=== PATIENT | female | born 1965 | race Caucasian/White ===

== ENCOUNTER 2022-10-07 16:26 | Inpatient (IN) | payer MEDICAID ==
[~2022-10-07] VITALS: Ht 172.7 cm; Wt 56.0 kg
[2022-10-07 17:00] LABS: BASOPHILS # (AUTO) 0.1 X10'3 (0-0.2); BASOPHILS % (AUTO) 0.4 % (0-1); EOSINOPHILS % (AUTO) 0.1 % (0-6); HEMATOCRIT 51.1 % (35.0-45.0); LYMPHOCYTES # (AUTO) 1.4 X10'3 (1.1-4.8); LYMPHOCYTES % (AUTO) 11.4 % (21-51); MEAN CORPUSCULAR HEMOGLOBIN 31.4 PG (27.0-31.0); MEAN CORPUSCULAR HGB CONC 35.3 g/dL (33.0-36.5); MEAN PLATELET VOLUME 8.2 FL (7.4-10.4); MONOCYTES % (AUTO) 7.8 % (2-12); NEUTROPHILS # (AUTO) 10.1 X10'3 (1.8-7.7); NEUTROPHILS % (AUTO) 80.3 % (42-75); PLATELET COUNT 396 X10'3 (140-440); RED BLOOD COUNT 5.74 X10'6 (4.20-5.60); RED CELL DISTRIBUTION WIDTH 12.4 % (11.5-14.5); WHITE BLOOD COUNT 12.5 X10'3 (4.5-11.0)
[2022-10-07] MEDS ORDERED: normal saline 1000ML IV soln IVB ONE (17:05)
[2022-10-07 17:11] LABS: ALANINE AMINOTRANSFERASE 22 U/L (12-78); ALBUMIN 4.4 G/DL (3.4-5.0); ALBUMIN/GLOBULIN RATIO 1.1 (1.1-1.5); ALKALINE PHOSPHATASE 64 IU/L (46-116); ANION GAP 21 (8-16); ASPARTATE AMINO TRANSFERASE 32 U/L (10-37); BILIRUBIN,TOTAL 1.1 MG/DL (0.1-1.0); BLOOD UREA NITROGEN 39 MG/DL (7-18); BUN/CREATININE RATIO 27.7 (10.0-20.0); CALCIUM 10.7 MG/DL (8.5-10.1); CHLORIDE 88 MMOL/L (99-107); CREATININE 1.41 MG/DL (0.40-0.90); GLUCOSE 156 MG/DL (70-104); LIPASE 123 U/L (73-393); POTASSIUM 3.1 MMOL/L (3.5-5.1); SODIUM 134 MMOL/L (135-145); TOTAL CARBON DIOXIDE 24.7 MMOL/L (24-32); TOTAL PROTEIN 8.3 G/DL (6.4-8.2); eGFR 38 ML/MIN
[2022-10-07] MEDS ORDERED: potassium Cl 40MEQ/1/2NS 520ml 520 ML IV ONE (17:20)
[2022-10-07] MEDS ORDERED: ondansetron/PF 4mg/2ml inj IV ONE (17:20)
[2022-10-07] MEDS ORDERED: normal saline 1000ml 1,000 ML IV ONE (17:25)
--- NOTE | 2022-10-07 17:25 | NUR ---
Critical lab reported: Hgb 18.0. Reported to SANDY Ochoa @ [phone].
[2022-10-07] MEDS ORDERED: magnesium 2GM in 50ml NS 50 ML IV ONE (17:30)
[2022-10-07 17:37] LABS: CLARITY,URINE CLOUDY (Clear); COLOR,URINE YELLOW (Yellow); GLUCOSE, URINE NEGATIVE (Neg); KETONES,URINE >=80 mg/dl (Neg); LEUKOCYTE ESTERASE ,URINE TRACE (Neg); NITRITES, URINE NEGATIVE (Neg); OCCULT BLOOD,URINE NEGATIVE (Neg); PH,URINE 6.5 (4.8-8.0); PROTEIN,URINE 30 mg/dl (Neg)
[2022-10-07 17:42] LABS: UA COLLECTION TYPE CLN CATCH MIDSTREAM
[2022-10-07 17:45] LABS: WBC,URINE 20-30 /HPF (0-4)
[2022-10-07] MEDS ORDERED: morphine 2 MG/ML inj. syringe IV PRN (17:45)
[2022-10-07] MEDS ORDERED: magnesium Cl slow-release 64mg tablet PO PRN (17:45)
[2022-10-07] MEDS ORDERED: HYDROcodone/acetaminophen 5mg/325mg tablet PO PRN (17:45)
[2022-10-07] MEDS ORDERED: potassium Cl 20 mEq SR tablet PO PRN (17:45)
[2022-10-07] MEDS ORDERED: potassium Cl 40MEQ/1/2NS 520ml 520 ML IV PRN (17:45)
[2022-10-07] MEDS ORDERED: acetaminophen 325mg tablet PO PRN ×2 (17:45)
[2022-10-07] MEDS ORDERED: metoclopramide 5 mg/ml inj IV PRN (17:45)
[2022-10-07] MEDS ORDERED: magnesium 2GM in 50ml NS 50 ML IV PRN (17:45)
[2022-10-07] MEDS ORDERED: magnesium 4gm in 100ml NS 100 ML IV PRN (17:45)
[2022-10-07 17:46] LABS: BACTERIA,URINE 2+ /HPF (Neg); RBC,URINE NONE SEEN /HPF (0-2); SQUAMOUS EPITHELIAL CELL,UR FEW /LPF (FEW)
[2022-10-07 17:47] LABS: MUCUS STRANDS MODERATE /LPF (Neg); WBC CLUMPS,URINE FEW /HPF (NEGATIVE)
[2022-10-07] MEDS ORDERED: ONDA-103 PO (18:28)
[2022-10-07] MEDS ORDERED: ZOLP10TA PO (18:28)
[2022-10-07] MEDS ORDERED: ZIPR80CA10 PO (18:28)
[2022-10-07] MEDS ORDERED: LEVO75TA7 PO (18:28)
[2022-10-07] MEDS ORDERED: ESCI5TAB17 PO (18:28)
[2022-10-07] MEDS ORDERED: SIMV-45 PO (18:28)
[2022-10-07] MEDS ORDERED: HYDR-3686 PO (18:28)
[2022-10-07] MEDS ORDERED: OMEP20CA16 PO (18:28)
[2022-10-07] MEDS ORDERED: MIRT45TA83 PO (18:28)
[2022-10-07] MEDS ORDERED: VORT20TA PO (18:28)
[2022-10-07] MEDS ORDERED: IBUP-1985 PO (18:28)
[2022-10-07] MEDS ORDERED: pantoprazole 40mg IV 80 MG in normal saline 100ml IV soln 100 ML IV ONE (18:30)
[2022-10-07] MEDS ORDERED: FLU VACC QS2022-23(6MOS UP)/PF 60 MCG/0.5 ML SYRINGE IMVAC ONE (18:50)
[2022-10-07] MEDS ORDERED: pneumococcal 23-VAL P-sac vacc 25 mcg/0.5ml vial IMVAC ONE (18:50)
[2022-10-07] MEDS: normal saline 1000ml 1,000 ML IV SCH (19:05)
[2022-10-07] MEDS: heparin, porcine 5000 units/ml vial SQ SCH (20:00)
[2022-10-07 20:44] LABS: BASOPHILS % (AUTO) 0.4 % (0-1); EOSINOPHILS % (AUTO) 0 % (0-6); HEMATOCRIT 42.6 % (35.0-45.0); HEMOGLOBIN 15.1 g/dl (12.0-16.0); LYMPHOCYTES % (AUTO) 15.5 % (21-51); MEAN CORPUSCULAR HEMOGLOBIN 31.5 PG (27.0-31.0); MEAN CORPUSCULAR HGB CONC 35.5 g/dL (33.0-36.5); MEAN CORPUSCULAR VOLUME 88.8 FL (78-98); MONOCYTES # (AUTO) 1.3 X10'3 (0-0.9); MONOCYTES % (AUTO) 10.2 % (2-12); NEUTROPHILS # (AUTO) 9.5 X10'3 (1.8-7.7); NEUTROPHILS % (AUTO) 73.9 % (42-75); PLATELET COUNT 328 X10'3 (140-440); RED BLOOD COUNT 4.79 X10'6 (4.20-5.60); RED CELL DISTRIBUTION WIDTH 12.2 % (11.5-14.5); WHITE BLOOD COUNT 12.8 X10'3 (4.5-11.0)
--- NOTE | 2022-10-07 20:48 | NUR ---
Sent Dr. Greenfield a page @ [phone] to ask if we should hold her heparin due to her procedure tomorrow AM. Awaiting response.
[2022-10-07] MEDS: mirtazapine 15mg tablet PO SCH (22:32)
[2022-10-07] MEDS: zolpidem 5mg tablet PO PRN (22:32)
[2022-10-08] VITALS (12 sets, daily range): BP systolic 92–127; BP diastolic 38–93
[2022-10-08] MEDS: normal saline 1000ml 1,000 ML IV SCH ×4 (01:19→18:47)
[2022-10-08 03:34] LABS: BASOPHILS % (AUTO) 0.2 % (0-1); EOSINOPHILS % (AUTO) 0.1 % (0-6); HEMOGLOBIN 13.7 g/dl (12.0-16.0); LYMPHOCYTES # (AUTO) 1.7 X10'3 (1.1-4.8); LYMPHOCYTES % (AUTO) 15.7 % (21-51); MEAN CORPUSCULAR HEMOGLOBIN 31.4 PG (27.0-31.0); MEAN CORPUSCULAR HGB CONC 35.1 g/dL (33.0-36.5); MEAN CORPUSCULAR VOLUME 89.6 FL (78-98); MEAN PLATELET VOLUME 8.1 FL (7.4-10.4); MONOCYTES # (AUTO) 1.1 X10'3 (0-0.9); MONOCYTES % (AUTO) 9.9 % (2-12); NEUTROPHILS # (AUTO) 8.1 X10'3 (1.8-7.7); NEUTROPHILS % (AUTO) 74.1 % (42-75); PLATELET COUNT 277 X10'3 (140-440); RED BLOOD COUNT 4.36 X10'6 (4.20-5.60); RED CELL DISTRIBUTION WIDTH 12.5 % (11.5-14.5)
[2022-10-08 06:00] LABS: ALANINE AMINOTRANSFERASE 16 U/L (12-78); ALBUMIN 3.2 G/DL (3.4-5.0); ALBUMIN/GLOBULIN RATIO 1.1 (1.1-1.5); ALKALINE PHOSPHATASE 47 IU/L (46-116); ANION GAP 15 (8-16); ASPARTATE AMINO TRANSFERASE 22 U/L (10-37); BILIRUBIN,TOTAL 0.8 MG/DL (0.1-1.0); BLOOD UREA NITROGEN 34 MG/DL (7-18); BUN/CREATININE RATIO 37.8 (10.0-20.0); CALCIUM 8.3 MG/DL (8.5-10.1); CHLORIDE 101 MMOL/L (99-107); GLUCOSE 91 MG/DL (70-104); SODIUM 138 MMOL/L (135-145); TOTAL CARBON DIOXIDE 21.8 MMOL/L (24-32); TOTAL PROTEIN 6.1 G/DL (6.4-8.2); eGFR 65 ML/MIN
[2022-10-08 06:06] LABS: POTASSIUM 2.7 MMOL/L (3.5-5.1)
[2022-10-08] MEDS ORDERED: potassium Cl 40MEQ/1/2NS 520ml 520 ML IV ONE (06:35)
[2022-10-08] MEDS: levoTHYROXINE 75mcg tablet PO SCH (07:00)
[2022-10-08] MEDS ORDERED: MIDAZolam 1 MG/ML 5ML VIAL ONE (07:25)
[2022-10-08] MEDS ORDERED: fentaNYL/PF 50MCG/1 ML 2ML syringe ONE (07:25)
[2022-10-08] MEDS ORDERED: LIDOcaine Viscous 15ml cup ONE (07:25)
[2022-10-08] MEDS ORDERED: ondansetron/PF 4mg/2ml inj ONE (07:35)
[2022-10-08] MEDS: heparin, porcine 5000 units/ml vial SQ SCH ×2 (08:00→19:54)
[2022-10-08] MEDS: ESCITALOPRAM OXALATE 5 MG TABLET PO SCH (08:00)
[2022-10-08] MEDS ORDERED: ziprasidone 20mg capsule PO SCH ×2 (08:00→21:00)
[2022-10-08] MEDS ORDERED: FLU VACC QS2022-23(6MOS UP)/PF 60 MCG/0.5 ML SYRINGE IMVAC ONE (10:00)
[2022-10-08] MEDS: ondansetron/PF 4mg/2ml inj IV PRN ×2 (10:40→18:44)
--- NOTE | 2022-10-08 16:09 | NUR ---
Pending dc on patients potassium redraw. t/c to lab and was told this will be done when "rover" is able to get to the floor.
[2022-10-08 17:53] LABS: URINE AMPHETAMINE SCREEN NEGATIVE (Neg); URINE BARBITUATE SCREEN NEGATIVE (Neg); URINE BENZODIAZEPINES SCREEN POSITIVE (Neg); URINE CANNABINOID SCREEN POSITIVE (Neg); URINE COCAINE SCREEN NEGATIVE (Neg); URINE METHADONE SCREEN NEGATIVE (Neg); URINE OPIATE SCREEN NEGATIVE (Neg); URINE PHENCYCLIDINE SCREEN NEGATIVE (Neg)
[2022-10-08] MEDS: potassium Cl 20 mEq SR tablet PO PRN ×2 (18:43→23:16)
[2022-10-08] MEDS: zolpidem 5mg tablet PO PRN (20:32)
[2022-10-08] MEDS: mirtazapine 15mg tablet PO SCH (20:32)
[2022-10-09] MEDS: potassium Cl 20 mEq SR tablet PO PRN (02:58)
[2022-10-09] MEDS: ondansetron/PF 4mg/2ml inj IV PRN (04:22)
[2022-10-09] MEDS: normal saline 1000ml 1,000 ML IV SCH (04:23)
--- NOTE | 2022-10-09 06:25 | NUR ---
Problems reprioritized. Patient report given, questions answered & plan of care reviewed with JARED Parra.
--- NOTE | 2022-10-09 06:58 | NUR ---
Patient in room [facility]. I have received report from Maria Elena COLEMAN and had the opportunity to ask questions and assume patient care.
--- NOTE | 2022-10-09 07:01 | NUR ---
Patient refused 0600 vital signs.
[2022-10-09 07:32] VITALS: BP 119/71
[2022-10-09] MEDS: ESCITALOPRAM OXALATE 5 MG TABLET PO SCH (07:33)
[2022-10-09] MEDS: levoTHYROXINE 75mcg tablet PO SCH (07:33)
[2022-10-09] MEDS: heparin, porcine 5000 units/ml vial SQ SCH (07:34)
[2022-10-09 08:51] LABS: BASOPHILS % (AUTO) 0.5 % (0-1); EOSINOPHILS % (AUTO) 0.6 % (0-6); HEMATOCRIT 38.6 % (35.0-45.0); LYMPHOCYTES # (AUTO) 2.2 X10'3 (1.1-4.8); LYMPHOCYTES % (AUTO) 29.8 % (21-51); MEAN CORPUSCULAR HEMOGLOBIN 31.7 PG (27.0-31.0); MEAN CORPUSCULAR HGB CONC 33.8 g/dL (33.0-36.5); MEAN CORPUSCULAR VOLUME 93.8 FL (78-98); MEAN PLATELET VOLUME 8.2 FL (7.4-10.4); MONOCYTES # (AUTO) 0.7 X10'3 (0-0.9); MONOCYTES % (AUTO) 9.7 % (2-12); NEUTROPHILS # (AUTO) 4.4 X10'3 (1.8-7.7); NEUTROPHILS % (AUTO) 59.4 % (42-75); PLATELET COUNT 208 X10'3 (140-440); RED BLOOD COUNT 4.11 X10'6 (4.20-5.60); RED CELL DISTRIBUTION WIDTH 12.7 % (11.5-14.5); WHITE BLOOD COUNT 7.5 X10'3 (4.5-11.0)
[2022-10-09 09:00] LABS: ALANINE AMINOTRANSFERASE 23 U/L (12-78); ALBUMIN/GLOBULIN RATIO 1.2 (1.1-1.5); ALKALINE PHOSPHATASE 44 IU/L (46-116); ANION GAP 12 (8-16); ASPARTATE AMINO TRANSFERASE 34 U/L (10-37); BILIRUBIN,TOTAL 0.5 MG/DL (0.1-1.0); BLOOD UREA NITROGEN 17 MG/DL (7-18); BUN/CREATININE RATIO 23.9 (10.0-20.0); CALCIUM 8.7 MG/DL (8.5-10.1); CHLORIDE 110 MMOL/L (99-107); CREATININE 0.71 MG/DL (0.40-0.90); GLUCOSE 57 MG/DL (70-104); POTASSIUM 4.3 MMOL/L (3.5-5.1); SODIUM 142 MMOL/L (135-145); TOTAL CARBON DIOXIDE 20.2 MMOL/L (24-32); TOTAL PROTEIN 5.6 G/DL (6.4-8.2); eGFR 85 ML/MIN
[2022-10-09] MEDS ORDERED: OMEP20CA16 PO (09:39)
[2022-10-09 10:38] VITALS: BP_SYST 89; BP_DIAS 46; BP_DIAS 57
[2022-10-09 10:39] VITALS: BP 89/57
--- NOTE | 2022-10-09 11:23 | NUR ---
Received Discharge orders, reviewed with Patient. Patient verbalized understanding. IV removed without incident, cannula intact. Patient escorted to lobby with belongings and son by auxiliary.
[2022-10-09 17:03] LABS: HBSAG SCREEN Negative (Negative); HEP B CORE AB, TOT Negative (Negative)
== END 2022-10-09 11:15 | disposition home or self-care (01) | DRG 241 ==
LOC: ER 16:27 → ED HOLD 17:51 → SUR 3N 10-08 09:05
PROVIDERS: ADMIT Internal Medicine; ATTEND Internal Medicine
PROC: 3E0234Z Introduction of Serum, Toxoid and Vaccine into Muscle, Percutaneous Approach (ICD-10-PCS; 2022-10-07)
PROC: 0DB78ZX Excision of Stomach, Pylorus, Via Natural or Artificial Opening Endoscopic, Diagnostic (ICD-10-PCS; principal; 2022-10-08)
DX: K29.70 Gastritis, unspecified, without bleeding (principal); D72.829 Elevated white blood cell count, unspecified; E86.0 Dehydration; E87.6 Hypokalemia; K44.9 Diaphragmatic hernia without obstruction or gangrene; T39.395A Adverse effect of other nonsteroidal anti-inflammatory drugs [NSAID], initial encounter; F32.A Depression, unspecified; F41.9 Anxiety disorder, unspecified; G47.00 Insomnia, unspecified; K20.90 Esophagitis, unspecified without bleeding; Z23 Encounter for immunization; Z88.8 Allergy status to other drugs, medicaments and biological substances; Z79.899 Other long term (current) drug therapy; Y92.89 Other specified places as the place of occurrence of the external cause
CPT/HCPCS: 36415; 43239; 80053; 80305; 81001; 83605; 83690; 84132; 84145; 85025; 86704; 86705; 86706; 87040; 87081; 87088; 87340; 90686; 90732; 97161; 97530; 99152; 99285; A4620; C9113; G0378; J1644; J2250; J2405; J2765; J3010; J3475; J3480; J3490; J7030

== ENCOUNTER 2023-12-09 12:01 | Day surgery (SDC) | payer MEDICAID ==
[~2023-12-09] VITALS: Ht 172.7 cm; Wt 52.0 kg
[~2023-12-09 12:01] MED LIST: ESCI5TAB17 PO; HYDR-3686 PO; LEVO75TA7 PO; MIRT45TA83 PO; OMEP20CA16 PO; ONDA-103 PO; SIMV-45 PO; VORT20TA PO; ZIPR80CA10 PO; ZOLP10TA PO
[2023-12-09 12:23] VITALS: BP 131/73; PULSE 73; RESP 21
[2023-12-09] MEDS ORDERED: MELO-100 PO (12:43)
[2023-12-09] MEDS ORDERED: LIDOcaine 2% Viscous 15ml cup ONE (13:16)
[2023-12-09] MEDS ORDERED: diphenhydrAMINE 50 mg/ml inj ONE (13:23)
[2023-12-09] MEDS ORDERED: fentaNYL/PF 50MCG/1 ML 2ML syringe ONE (13:23)
[2023-12-09] MEDS ORDERED: MIDAZolam 1 MG/ML 5ML VIAL ONE (13:23)
[2023-12-09 13:56] VITALS: BP 136/51; PULSE 69; RESP 16; O2SAT 95
[2023-12-09 14:06] VITALS: BP 106/56; PULSE 72; RESP 16; O2SAT 94
[2023-12-09 14:16] VITALS: BP 128/72; PULSE 62; RESP 14; O2SAT 95
[2023-12-09 14:26] VITALS: BP 115/72; PULSE 65; RESP 16; O2SAT 96
== END 2023-12-09 14:35 | disposition home or self-care (01) ==
LOC: GI LAB 12:01
PROVIDERS: ATTEND Internal Medicine Gastroenterology
DX: R11.10 Vomiting, unspecified (principal); K44.9 Diaphragmatic hernia without obstruction or gangrene; K29.50 Unspecified chronic gastritis without bleeding; K21.9 Gastro-esophageal reflux disease without esophagitis
CPT/HCPCS: 43239; J1200; J2250; J3010; J7030; Z7512; 99152; A4620

== ENCOUNTER 2024-03-01 13:25 | Outpatient (CLI) | payer MEDICAID ==
[~2024-03-01 13:25] MED LIST changes: +MELO-100 PO
== END 2024-03-01 23:59 | disposition home or self-care (01) ==
LOC: RAD 13:25
PROVIDERS: ATTEND Surgery
DX: K21.9 Gastro-esophageal reflux disease without esophagitis (principal)
CPT/HCPCS: 74220

== ENCOUNTER 2024-04-18 08:10 | Inpatient (IN) | payer MEDICAID ==
[2024-04-11 14:50] LABS: BASOPHILS # (AUTO) 0.1 X10'3 (0-0.2); EOSINOPHILS # (AUTO) 0.2 X10'3 (0-0.9); EOSINOPHILS % (AUTO) 2.9 % (0-6); LYMPHOCYTES # (AUTO) 2.6 X10'3 (1.1-4.8); LYMPHOCYTES % (AUTO) 31.3 % (21-51); MEAN CORPUSCULAR HEMOGLOBIN 29.8 PG (27.0-31.0); MEAN CORPUSCULAR HGB CONC 32.6 g/dL (33.0-36.5); MEAN CORPUSCULAR VOLUME 91.5 FL (78-98); MEAN PLATELET VOLUME 6.9 FL (7.4-10.4); MONOCYTES # (AUTO) 0.7 X10'3 (0-0.9); MONOCYTES % (AUTO) 8.5 % (2-12); NEUTROPHILS # (AUTO) 4.7 X10'3 (1.8-7.7); NEUTROPHILS % (AUTO) 56.3 % (42-75); PRE OP HEMATOCRIT 45.5 % (35.0-45.0); PRE OP HEMOGLOBIN 14.8 g/dL (12.0-16.0); PRE OP PLATELET COUNT 316 X10'3 (140-440); PRE OP WHITE BLOOD COUNT 8.4 10'3 (4.8-10.8); RED BLOOD COUNT 4.97 X10'6 (4.20-5.60); RED CELL DISTRIBUTION WIDTH 13.3 % (11.5-14.5)
[2024-04-11 15:01] LABS: ALBUMIN 3.5 G/DL (3.4-5.0); ALBUMIN/GLOBULIN RATIO 0.9 (1.1-1.5); ALKALINE PHOSPHATASE 102 IU/L (46-116); BLOOD UREA NITROGEN 17 MG/DL (7-18); BUN/CREATININE RATIO 19.3 (10.0-20.0); CALCIUM 8.7 MG/DL (8.5-10.1); CHLORIDE 105 MMOL/L (99-107); CREATININE 0.88 MG/DL (0.40-0.90); PRE OP ALT 26 U/L (30-65); PRE OP ANION GAP 7 (8-16); PRE OP AST 27 U/L (10-37); PRE OP GLUCOSE 86 MG/DL (70-104); PRE OP SODIUM 141 MMOL/L (135-145); TOTAL CARBON DIOXIDE 29.4 MMOL/L (24-32); TOTAL PROTEIN 7.5 G/DL (6.4-8.2); eGFR 66 ML/MIN
[2024-04-11 15:04] LABS: PRE OP BILIRUB, TOTAL 0.1 MG/DL (0.0-1.0); PRE OP POTASSIUM 3.8 MMOL/L (3.4-5.1)
[~2024-04-18] VITALS: Ht 172.7 cm; Wt 69.3 kg
[2024-04-18] VITALS (37 sets, daily range): BP systolic 97–142; BP diastolic 57–100; PULSE 60–93; RESP 9–20; TEMP 97.4–97.8; O2SAT 91–98
[~2024-04-18 08:10] MED LIST changes: -ESCI5TAB17 PO; +ZIPR20CA12 PO
[2024-04-18] MEDS ORDERED: ondansetron/PF 4mg/2ml inj IV PRN (09:25)
[2024-04-18] MEDS ORDERED: proCHLORperazine 10 MG/2 ml inj IV PRN (09:25)
[2024-04-18] MEDS ORDERED: morphine 2 MG/ML inj. syringe IV PRN (09:25)
[2024-04-18] MEDS ORDERED: meperidine/PF 25mg/ml syringe IV PRN ×2 (09:25)
[2024-04-18] MEDS ORDERED: ringers solution, lacted 1,000 ML IV SCH (09:25)
[2024-04-18] MEDS: famotidine 20mg tablet PO ONE (09:30)
[2024-04-18] MEDS: ringers solution, lacted 1,000 ML IV SCH (09:31)
[2024-04-18] MEDS: ceFAZolin 2gm in dextrose, iso 50 ML IV ONE (09:31)
[2024-04-18] MEDS ORDERED: BUPIVAcaine 2.5mg/ml inj 50ml vial (contains preservative) ONE (11:03)
[2024-04-18] MEDS ORDERED: LIDOcaine 1% (10mg/ml)w/preservative inj. 20ml MDV ONE (11:03)
[2024-04-18] MEDS ORDERED: sevoflurane 250ml liquid IH ONE (11:12)
[2024-04-18] MEDS ORDERED: midazolam 1 mg/ML 2ml injection ONE (11:13)
[2024-04-18] MEDS ORDERED: fentaNYL /PF 50mcg/ml 5ml ampule ONE (11:13)
[2024-04-18] MEDS ORDERED: propofol inj 20 ML IV ONE (11:13)
[2024-04-18] MEDS ORDERED: rocuronium 10mg/ml inj IV ONE (11:14)
[2024-04-18] MEDS ORDERED: albumin (Human) 5% 250ml 250 ML IV ONE (11:39)
[2024-04-18] MEDS ORDERED: acetaminophen 1,000mg/100ml IV 100 ML IV ONE (12:56)
[2024-04-18] MEDS ORDERED: ondansetron/PF 4mg/2ml inj ONE (12:57)
[2024-04-18] MEDS ORDERED: dexamethasone sod phosphate 4mg/ml inj. ONE (12:57)
[2024-04-18] MEDS: morphine 4 MG/ML inj SYRINge IV PRN (13:34)
[2024-04-18] MEDS: ketorolac trometh 30MG/ML vial 30 MG/ML VIAL IV ONE (13:34)
[2024-04-18] MEDS ORDERED: naloxone 0.4 mg/ml inj IV PRN (13:40)
[2024-04-18] MEDS: meperidine/PF 25mg/ml syringe IV PRN (14:14)
[2024-04-18] MEDS ORDERED: OXYC-145 PO (14:40)
[2024-04-18] MEDS: HYDROmorph/NS 0.2 mg/ml PCA 100 ML IV SCH (15:00)
[2024-04-18] MEDS: potassium CL 20mEq in D5-1/2NS 1,000 ML IV SCH (16:21)
[2024-04-18] MEDS: normal saline 1000ml 1,000 ML IV SCH (19:00)
[2024-04-18] MEDS: ondansetron/PF 4mg/2ml inj IV PRN (19:42)
[2024-04-18] MEDS: simvastatin 20mg tablet PO SCH (20:08)
[2024-04-18] MEDS: hydrOXYzine 25 MG tablet PO PRN (20:08)
[2024-04-18] MEDS: zolpidem 5mg tablet PO PRN (20:08)
[2024-04-18] MEDS: mirtazapine 15mg tablet PO SCH (20:09)
[2024-04-18] MEDS: ziprasidone 20mg capsule PO SCH (20:09)
[2024-04-19 06:00] VITALS: BP 106/62; PULSE 83; RESP 13; TEMP 97.4; O2SAT 94
[2024-04-19] MEDS: levoTHYROXINE 75mcg tablet PO SCH (08:09)
[2024-04-19] MEDS: ziprasidone 20mg capsule PO SCH (08:10)
[2024-04-19] MEDS: MELOXICAM 7.5 MG TABLET PO SCH (08:10)
[2024-04-19 10:30] VITALS: BP 106/62; PULSE 81; RESP 12; TEMP 97.7; O2SAT 97
[2024-04-19] MEDS: oxyCODONE/APAP 5-325mg tablet PO PRN (10:50)
[2024-04-19 13:19] VITALS: RESP 14; O2SAT 98
[2024-04-19] MEDS: LidoCAINE 2% Topical Jelly 11mL syringe (UROJET) TOP ONE (14:45)
[2024-04-19] MEDS: PCA WASTE DOCUMENTATION 1 MG ML MC SCH (15:06)
[2024-04-19] MEDS ORDERED: HYDROmorphone inj. 0.5 MG/0.5 ML DISP.SYRIN IV PRN (17:45)
[2024-04-19 19:00] VITALS: BP 124/82; PULSE 82; RESP 18; TEMP 97.9; O2SAT 100
[2024-04-19 19:30] VITALS: RESP 16; O2SAT 98
[2024-04-19] MEDS: oxyCODONE/APAP 5-325mg tablet PO SCH (19:30)
[2024-04-19 22:00] VITALS: BP 143/86; PULSE 88; RESP 16; TEMP 98.3; O2SAT 96
[2024-04-20 05:02] LABS: BASOPHILS % (AUTO) 0.6 % (0-1); EOSINOPHILS # (AUTO) 0.1 X10'3 (0-0.9); EOSINOPHILS % (AUTO) 1.4 % (0-6); HEMATOCRIT 41.6 % (35.0-45.0); HEMOGLOBIN 13.8 g/dl (12.0-16.0); LYMPHOCYTES % (AUTO) 25.8 % (21-51); MEAN CORPUSCULAR HEMOGLOBIN 30.3 PG (27.0-31.0); MEAN CORPUSCULAR HGB CONC 33.1 g/dL (33.0-36.5); MEAN CORPUSCULAR VOLUME 91.6 FL (78-98); MEAN PLATELET VOLUME 6.8 FL (7.4-10.4); MONOCYTES # (AUTO) 0.6 X10'3 (0-0.9); MONOCYTES % (AUTO) 8.4 % (2-12); NEUTROPHILS # (AUTO) 4.9 X10'3 (1.8-7.7); NEUTROPHILS % (AUTO) 63.8 % (42-75); PLATELET COUNT 258 X10'3 (140-440); RED BLOOD COUNT 4.54 X10'6 (4.20-5.60); RED CELL DISTRIBUTION WIDTH 13.4 % (11.5-14.5); WHITE BLOOD COUNT 7.6 X10'3 (4.5-11.0)
[2024-04-20 05:12] LABS: ALBUMIN 3.2 G/DL (3.4-5.0); ANION GAP 7 (8-16); BLOOD UREA NITROGEN 8 MG/DL (7-18); BUN/CREATININE RATIO 8.7 (10.0-20.0); CALCIUM 8.7 MG/DL (8.5-10.1); CHLORIDE 104 MMOL/L (99-107); CREATININE 0.92 MG/DL (0.40-0.90); GLUCOSE 97 MG/DL (70-104); POTASSIUM 4.1 MMOL/L (3.5-5.1); SODIUM 138 MMOL/L (135-145); TOTAL CARBON DIOXIDE 26.7 MMOL/L (24-32); eCRCL 67 ML/MIN; eGFR 63 ML/MIN
[2024-04-20 06:00] VITALS: BP 123/83; PULSE 88; RESP 18; TEMP 98.6; O2SAT 96
[2024-04-20 10:00] VITALS: BP 116/75; PULSE 85; RESP 16; TEMP 97; O2SAT 98
== END 2024-04-20 17:00 | disposition home or self-care (01) | DRG 220 ==
LOC: PAS IN 08:10 → SUR 3N 17:24
PROVIDERS: ADMIT Surgery; ATTEND Surgery
PROC: 8E0W4CZ Robotic Assisted Procedure of Trunk Region, Percutaneous Endoscopic Approach (ICD-10-PCS; 2024-04-18)
PROC: 0DQ64ZZ Repair Stomach, Percutaneous Endoscopic Approach (ICD-10-PCS; 2024-04-18)
PROC: 0BUT4JZ Supplement Diaphragm with Synthetic Substitute, Percutaneous Endoscopic Approach (ICD-10-PCS; principal; 2024-04-18 11:12)
DX: K44.9 Diaphragmatic hernia without obstruction or gangrene (principal)
CPT/HCPCS: 36415; 71045; 80048; 80053; 82948; 85025; 87081; 93005; A4314; A4338; A4615; A4618; C1758; C1781; G0378; J0131; J0690; J1100; J1171; J1885; J2175; J2250; J2270; J2405; J2704; J2710; J3010; J3480; J3490; J7120; P9045; Q0177

== ENCOUNTER 2024-06-30 08:13 | Outpatient (CLI) | payer MEDICAID ==
[~2024-06-30 08:13] MED LIST changes: -OMEP20CA16 PO; +OXYC-145 PO; +barium sulfate 340gm for oral suspension 1 BOTTLE SUSP.RECON PO ONE
== END 2024-06-30 23:59 | disposition home or self-care (01) ==
LOC: RAD 08:13
PROVIDERS: ATTEND Surgery
DX: K21.9 Gastro-esophageal reflux disease without esophagitis (principal)
CPT/HCPCS: 74220

== ENCOUNTER 2025-01-30 10:38 | Inpatient (IN) | payer MEDICAID ==
--- NOTE | 2025-01-24 10:43 | ELECTROCARDIOGRAPH REPORT ---
[facility] Test Date: 2025-01-24 Test Time: 10:37:43 Pat Name: WILDER HUFF Department: PRE/OP CARDIOLOGY Room: Gender: F Server Support Technician: LESLIE : 1965 Requested By: VINAY ARREOLA Order Number: [id number] Reading MD: Dr. KIRILL Menendez Measurements Intervals [place] Rate: 81 P: 41 VT: 141 QRS: -12 QRSD: 81 T: -6 QT: 360 QTc: 418 Interpretive Statements Sinus rhythm Ventricular premature complex Low voltage, precordial leads LVH by voltage Borderline T abnormalities, anterior leads Electronically Signed On 01-24-2025 14:16:[address] KIRILL Menendez Please click the below link to view image of tracing.
[2025-01-24 10:58] LABS: MEAN PLATELET VOLUME 7.4 FL (7.4-10.4); PRE OP HEMATOCRIT 48.2 % (35.0-45.0); PRE OP HEMOGLOBIN 15.9 g/dL (12.0-16.0); PRE OP PLATELET COUNT 377 X10'3 (140-440); PRE OP WHITE BLOOD COUNT 11.0 10'3 (4.8-10.8); RED CELL DISTRIBUTION WIDTH 15.3 % (11.5-14.5)
[2025-01-24 11:24] LABS: CREATININE 1.15 MG/DL (0.40-0.90); PRE OP ALT 29 U/L (30-65); PRE OP AST 31 U/L (10-37); PRE OP BILIRUB, TOTAL 0.4 MG/DL (0.0-1.0); PRE OP GLUCOSE 110 MG/DL (70-104); PRE OP POTASSIUM 3.6 MMOL/L (3.4-5.1); TOTAL CARBON DIOXIDE 26.2 MMOL/L (24-32); eGFR 48 ML/MIN
[2025-01-24 11:25] LABS: PRE OP ANION GAP 12 (8-16); PRE OP SODIUM 141 MMOL/L (135-145)
[~2025-01-30] VITALS: Ht 170.2 cm; Wt 76.3 kg
[2025-01-30] VITALS (30 sets, daily range): BP systolic 90–148; BP diastolic 60–84; PULSE 73–85; RESP 11–22; TEMP 97–98.2; O2SAT 92–98
[2025-01-30] MEDS: ceFAZolin 2gm/dext,iso 50mL 50 ML IV ONE (05:30)
[~2025-01-30 10:38] MED LIST changes: +BUPIVAcaine/PF 2.5mg/ml (0.25%) 10ml vial ONE; +DARI25TA PO; +GABA-535 PO; +LIDOcaine 1% 30ml preserv. free vial ONE; +OMEP40CA21 PO; +ONDA-245 PO; -OXYC-145 PO; -ZOLP10TA PO; -barium sulfate 340gm for oral suspension 1 BOTTLE SUSP.RECON PO ONE
[2025-01-30] MEDS: ringers solution, lacted 1,000 ML IV SCH ×2 (10:45→11:00)
[2025-01-30] MEDS ORDERED: hydrALAZINE 20mg/ml inj. IV PRN (10:45)
[2025-01-30] MEDS ORDERED: labetalol 20mg/4ml (5mg/ml) syringe IV PRN (10:45)
[2025-01-30] MEDS ORDERED: fentaNYL/PF 50MCG/1 ML 2ML syringe ONE (11:16)
[2025-01-30] MEDS ORDERED: midazolam 1 mg/ML 2ml injection ONE (11:16)
[2025-01-30] MEDS ORDERED: ondansetron/PF 4mg/2ml inj ONE (11:17)
[2025-01-30] MEDS ORDERED: rocuronium 10mg/ml inj IV ONE ×2 (11:17→11:18)
[2025-01-30] MEDS ORDERED: acetaminophen 1,000mg/100ml IV 100 ML IV ONE (11:18)
[2025-01-30] MEDS ORDERED: LIDOcaine 1%/PF 5ML 10 MG/ML VIAL ONE (11:18)
[2025-01-30] MEDS ORDERED: desflurane 240ml liquid inh. IH ONE (11:30)
[2025-01-30] MEDS ORDERED: propofol inj 20 ML IV ONE (11:53)
[2025-01-30] MEDS: BUPIVAcaine 0.25% w/Epi /PF 30ml vial IJ ONE (11:56)
[2025-01-30] MEDS ORDERED: HYDROmorphone inj. 0.5 MG/0.5 ML DISP.SYRIN IV PRN (14:30)
[2025-01-30] MEDS ORDERED: PCA WASTE DOCUMENTATION 1 MG ML MC SCH (14:30)
[2025-01-30] MEDS: morphine 4 MG/ML inj SYRINge IV PRN (14:35)
[2025-01-30] MEDS: ondansetron/PF 4mg/2ml inj IV PRN (14:49)
[2025-01-30] MEDS: fentaNYL/PF 50MCG/1 ML 2ML syringe IV PRN ×2 (15:26→16:12)
[2025-01-30] MEDS: potassium CL 20mEq in D5-1/2NS 1,000 ML IV SCH (18:52)
--- NOTE | 2025-01-30 19:05 | OPERATIVE REPORT ---
Operative Report Providers to CC CC: SCAR ARREOLA MD ~ Date of Procedure: Jan 30, 2025 Pre-Operative Diagnosis: gastroparesis Post-Operative Diagnosis SAME as PRE-Op Procedure Performed Robotic assisted, laparoscopic levekpnnxjgy-Mwnlnyq-Qgnavdss type Esophagogastroduodenoscopy-diagnostic Surgeon: Scar Arreola MD FACS Club Attendant None Anesthesiologist: Petr Centeno Type of Anesthesia: General Findings: Wound class III Complications None Prosthetics\Implants used: None Estimated Blood Loss: Less than 10 cc Specimen Removed: None Description of Procedure: Patient was brought to the operating room and identified by the nursing staff and the attending physician. Patient was placed supine and general anesthesia was induced. Patient's abdomen was prepped and draped in the standard sterile fashion. Preoperative antibiotics were given. Veress needle technique was used to gain access and insufflate the abdomen without incident. Abdomen was entered through the left upper quadrant and surveyed laparoscopically. A total of four 8.5 mm robotic trocars were placed across the upper mid abdomen. Stomach was readily visualized. At this point, an esophagogastroduodenoscopy was performed. The Olympus upper endoscope was easily advanced through the oropharynx and into the esophagus. The scope was advanced to the distal esophagus were no esophagitis was identified. The GE junction was patent and the stomach was entered. Immediately noted was a moderate amount of organic material within the lumen of the stomach. The stomach was traversed. Noted was inflammatory changes in the gastric antrum. The pylorus was patent and traversed. Lights were dimmed wi thin the operating room and with laparoscopic visualization, the location of the pylorus was confirmed both endoscopically and laparoscopically. Stomach was then irrigated and suctioned until the majority of the liquid material was removed. Stomach was deflated and the EGD scope was removed. Instruments were guided into the abdomen after the [employer] robotic arm was docked to the patient. The duodenum was mobilized partially by doing a partial Melvin maneuver. Once there was adequate mobilization on the 1st and 2nd portion of the duodenum, the pyloroplasty was performed. Full-thickness enterotomy was created just distal to the pylorus until the lumen of the duodenum was identified. Robotic grasper was inserted and the anterior wall of the pylorus was lifted and subsequently divided using the monopolar hamilton. Pyloric channel was divided and that full-thickness incision was carried onto the gastric antrum. The incision traversed the serosa, muscularis and mucosa. The lumen was inspected and a small amount of spillage was suctioned and irrigated. Hemostasis was assured. The pyloric defect was then closed in a transverse fashion using a running 3/0 V lock absorbable suture; running from both edges towards the midline of the repair. This was a full-thickness running suture. 3-0 silk sutures were then used in an interrupted fashion and Lembert fashion to completely bury and secure the suture line. This technique effectively widened the gastric outlet while maintaining luminal integrity. Leak testing was performed by filling the operative field with saline and insufflating the stomach with air. No leaks were identified. The area was irrigated, hemostasis confirmed and the irrigant suctioned. A small rent in the liver while retracting led to small amount of bleeding which was controlled with the electrocautery. This area was also irrigated and suctioned and the irrigant returned clear. Instruments were removed and the de Minn[employer] robotic arm was undocked from the patient. Abdomen was allowed to deflate and ports were removed. Skin was closed at all sites with 4-0 Monocryl sutures in a subcuticular fashion. Sterile dressings were applied. Patient tolerated the procedure and was taken to the postanesthesia care unit in stable condition. Counts repoted as correct: Yes SCAR ARREOLA MD Jan 30, 2025 19:05
[2025-01-30] MEDS: heparin, porcine 5000 units/ml vial SQ SCH (21:11)
[2025-01-30] MEDS: DARIDOREXANT HCL PO SCH (23:01)
[2025-01-31 02:00] VITALS: BP 105/48; PULSE 75; RESP 17; TEMP 98; O2SAT 96
[2025-01-31 04:59] LABS: MEAN PLATELET VOLUME 8.2 FL (7.4-10.4); RED CELL DISTRIBUTION WIDTH 15.2 % (11.5-14.5)
[2025-01-31 06:15] LABS: CREATININE 0.81 MG/DL (0.40-0.90); TOTAL CARBON DIOXIDE 21.0 MMOL/L (24-32); eCRCL 73 ML/MIN; eGFR 72 ML/MIN
[2025-01-31 06:25] VITALS: BP 129/81; PULSE 88; RESP 18; TEMP 97.7; O2SAT 95
[2025-01-31] MEDS: VORTIOXETINE HYDROBROMIDE 20 MG PO SCH (08:00)
[2025-01-31] MEDS: levoTHYROXINE 75mcg tablet PO SCH (09:06)
[2025-01-31] MEDS: MELOXICAM 7.5 MG TABLET PO SCH (09:25)
[2025-01-31 10:00] VITALS: BP 109/57; PULSE 75; RESP 14; TEMP 97.4; O2SAT 94
[2025-01-31] MEDS: ondansetron/PF 4mg/2ml inj IV PRN (13:56)
[2025-01-31] MEDS: LidoCAINE 2% Topical Jelly 11mL syringe (UROJET) TOP ONE (15:45)
[2025-01-31 18:00] VITALS: BP 101/68; PULSE 75; RESP 17; TEMP 97.9; O2SAT 94
--- NOTE | 2025-01-31 18:37 | PROGRESS NOTE ---
Progress Note Dictate Providers to CC ~ Progress Note: Subsequent surgical care on a 59-year-old woman who is day one status post robotic assisted, laparoscopic pyloroplasty for intractable gastroparesis Tolerating clear liquids Urinary retention x2 requiring Orozco catheter; this has happened before Full liquid diet as tolerated Anticipate discharge home tomorrow Antibiotic Ordered?: No Objective Vitals Vital Signs Date Time Temp Pulse Resp B/P (MAP) Pulse Ox O2 Delivery O2 Flow Rate FiO2 01/31/25 14:58 16 01/31/25 10:00 97.4 75 109/57 (74) 94 Room Air 01/30/25 22:00 0.5 Lab Results: 01/31/25 0429 01/31/25 0429 VINAY ARREOLA MD Jan 31, 2025 18:37
[2025-01-31 19:00] VITALS: RESP 17
[2025-01-31 22:00] VITALS: BP 93/60; PULSE 76; RESP 16; TEMP 98; O2SAT 95
[2025-02-01 05:17] LABS: MEAN PLATELET VOLUME 8.1 FL (7.4-10.4); RED CELL DISTRIBUTION WIDTH 14.7 % (11.5-14.5)
[2025-02-01 06:07] LABS: CREATININE 0.64 MG/DL (0.40-0.90); TOTAL CARBON DIOXIDE 25.4 MMOL/L (24-32); eCRCL 92 ML/MIN; eGFR > 90 ML/MIN
[2025-02-01 06:36] VITALS: BP 112/66; PULSE 81; RESP 20; TEMP 98.3; O2SAT 98
[2025-02-01 10:00] VITALS: BP 142/67; PULSE 82; RESP 16; TEMP 97.2; O2SAT 96
[2025-02-01] MEDS: oxyCODONE/APAP 5-325mg tablet PO ONE (11:17)
[2025-02-01] MEDS: oxyCODONE/APAP 5-325mg tablet PO PRN (17:22)
[2025-02-01 18:00] VITALS: BP 104/61; PULSE 80; RESP 17; TEMP 97.9; O2SAT 97
[2025-02-01 19:00] VITALS: RESP 17; O2SAT 97
[2025-02-01 22:00] VITALS: BP 129/76; PULSE 76; RESP 18; TEMP 97.6; O2SAT 99
--- NOTE | 2025-02-01 22:13 | PROGRESS NOTE ---
Progress Note Dictate Providers to CC ~ Progress Note: Postoperative day 2, status post robotic assisted, laparoscopic pyloroplasty for intractable gastroparesis Tolerating clear liquid diet Urinary retention required bladder training and Orozco catheter Anticipate discharge in the next 24 hours Full liquid diet for the next four or five days Flomax for urinary retention Antibiotic Ordered?: No Objective Vitals Vital Signs Date Time Temp Pulse Resp B/P (MAP) Pulse Ox O2 Delivery O2 Flow Rate FiO2 02/01/25 18:22 16 02/01/25 18:00 97.9 80 104/61 (75) 97 Room Air 01/30/25 22:00 0.5 Lab Results: 02/01/25 0453 02/01/25 0453 VINAY ARREOLA MD Feb 01, 2025 22:13
[2025-02-02 05:32] LABS: MEAN PLATELET VOLUME 7.5 FL (7.4-10.4); RED CELL DISTRIBUTION WIDTH 14.2 % (11.5-14.5)
[2025-02-02 05:38] LABS: CREATININE 0.73 MG/DL (0.40-0.90); TOTAL CARBON DIOXIDE 24.0 MMOL/L (24-32); eCRCL 81 ML/MIN; eGFR 82 ML/MIN
[2025-02-02 06:00] VITALS: BP 107/58; PULSE 83; RESP 18; TEMP 97.4; O2SAT 96
[2025-02-02 07:00] VITALS: RESP 17; O2SAT 97
[2025-02-02] MEDS: diatr meglu/diatrizoate 30ml oral sol.-(3 dose) bottle PO ONE (07:40)
[2025-02-02] MEDS: magnesium hydroxide 30ml (MOM) UD suspension PO ONE (09:52)
--- NOTE | 2025-02-02 09:55 | RADIOLOGY REPORT ---
Date: 02/02/2025 08:36 AM Examination: DI ABDOMEN,SINGLE VIEW(KUB) History: nausea Comparison: DI ABDOMEN,SINGLE VIEW(KUB) on DOS: 08/22/24 TECHNIQUE: Frontal views of the abdomen was obtained. FINDINGS: Bowel gas pattern is unremarkable. The lung bases are unremarkable. No acute osseous abnormality identified. IMPRESSION: Nonobstructive bowel gas pattern. Large stool burden.
[2025-02-02 10:52] VITALS: BP 126/90; PULSE 69; RESP 18; TEMP 98; O2SAT 96
[2025-02-02 12:40] VITALS: RESP 16
[2025-02-02] MEDS ORDERED: tamsulosin capsule PO (12:49)
[2025-02-02] MEDS ORDERED: PER5325T PO (12:49)
--- NOTE | 2025-02-02 12:54 | DISCHARGE SUMMARY ---
Discharge Summary Providers to CC CC: SCAR ARREOLA MD; EM ISIDRO MD ~ Discharge Summary Admission Diagnosis: gastroparesis Hospital Course DATE OF ADMISSION: January 30, 2025 DATE OF DISCHARGE: February 02, 2025 Discharge Diagnosis\Comment: Gastroparesis Urinary retention-acute Operations\Procedures: Robotic assisted, laparoscopic pyloroplasty Consultants: Scar Arreola MD FACS Dr. Isidro-urology (telephone recommendations) Complications: Postoperative urinary retention Condition on DC: Stable New Medications: Oxycodone Hcl/Acetaminophen 5/325 MG* (Percocet 5/325 MG*) 5 Mg/325 Mg Tablet 1 TAB PO Q4H PRN for moderate or severe pain 4-10 for 5 Days, #30 TAB [tamsulosin capsule] () 0.4 MG CAP 0.4 MG PO HS for 30 Days, #30 Continued Medications: Daridorexant HCl (Quviviq) 25 Mg Tablet 2 TAB PO HS MDD 1 Tablet(s) Gabapentin (Gabapentin) 400 Mg Capsule 1 TAB PO DAILY Gabapentin (Gabapentin) 400 Mg Capsule 1 CAP PO DAILY@NOON Gabapentin (Gabapentin) 400 Mg Capsule 2 CAP PO HS Hydroxyzine Hcl* (Atarax*) 25 Mg Tablet 2 TAB PO BID@0800,1500 Levothyroxine Sodium (Levothyroxine Sodium) 75 Mcg Tablet 75 MCG PO DAILY Meloxicam* (Meloxicam*) 7.5 Mg Tablet 15 MG PO DAILY Mirtazapine (Remeron) 45 Mg Tablet 45 MG PO HS Omeprazole (Prilosec) 40 Mg Capsule 1 CAP PO DAILY Ondansetron 8mg ODT (Ondansetron Odt) 8 Mg Tab.rapdis 1 TAB PO DAILY@ 1500 Ondansetron HCl (Ondansetron HCl) 4 Mg Tablet 8 MG PO DAILY Simvastatin (Simvastatin) 40 Mg Tablet 40 MG PO HS Vortioxetine Hydrobromide (Brintellix) 20 Mg Tablet 20 MG PO DAILY Ziprasidone Hcl (Ziprasidone Hcl) 80 Mg Capsule 80 MG PO HS Ziprasidone Hcl (Ziprasidone Hcl) 20 Mg Capsule 20 MG PO QAM Discharge Summary: Patient was admitted for routine postoperative care following robotic assisted, laparoscopic pyloroplasty for gastroparesis and intractable nausea and vomiting. Patient tolerating clear liquid diet on postoperative day one, however, developed urinary retention. Catheter was removed on postoperative day 2., however, urinary retention continued/recurred. A Orozco catheter was replaced and urology consultation was placed on postoperative day 3. Telephone consultation for recommendations only yielded recommendations for Flomax, Orozco catheter and outpatient voiding trial at the urologist's office. Dr. Isidro agreed to see the patient in the office. With regards to surgery, she was tolerating a full liquid diet. Gastrografin KUB showed emptying of the stomach of contrast and early filling into the small bowel Patient has some constipation and was given a dose of milk of magnesia At the time of discharge he was tolerating full liquid diet and pain was adequately controlled with oral pain medication. She will follow up with both myself in two weeks and urology in one week. *Problems/Diagnosis: (1) Urinary disorder Status: Acute (2) Gastroparesis Status: Chronic Total Time Spent on D/C: Up to 30 Minutes SCAR ARREOLA MD Feb 02, 2025 12:54
== END 2025-02-02 14:24 | disposition home or self-care (01) | DRG 222 ==
LOC: PAS IN 10:38 → SUR 3N 16:59
PROVIDERS: ADMIT Surgery; ATTEND Surgery
PROC: 0DJ08ZZ Inspection of Upper Intestinal Tract, Via Natural or Artificial Opening Endoscopic (ICD-10-PCS; 2025-01-30)
PROC: 8E0W4CZ Robotic Assisted Procedure of Trunk Region, Percutaneous Endoscopic Approach (ICD-10-PCS; 2025-01-30)
PROC: 0DQ74ZZ Repair Stomach, Pylorus, Percutaneous Endoscopic Approach (ICD-10-PCS; principal; 2025-01-30 11:35)
DX: K31.84 Gastroparesis (principal); R33.9 Retention of urine, unspecified
CPT/HCPCS: 36415; 74018; 80048; 80053; 82948; 84443; 85025; 87081; 93005; A4314; A4333; A4358; A4615; A4618; A5200; C1758; G0378; J0131; J0665; J1100; J1171; J1644; J2003; J2250; J2270; J2405; J2470; J2704; J3010; J3480; J3490; J7120; Q0177; Q9963